=== PATIENT | male | born 1990 | race Caucasian/White ===

== ENCOUNTER 2017-12-26 13:46 | Emergency (ER) | payer BC ==
[~2017-12-26] VITALS: Ht 167.6 cm; Wt 103.2 kg
[~2017-12-26 13:46] MED LIST: KEPPRA 500MG500 MG PO
[2017-12-26 13:47] VITALS: TEMP 99.5
[2017-12-26] MEDS ORDERED: KEPPRA 500MG500 MG PO ×2 (13:53→15:04)
[2017-12-26 14:21] LABS: HEMATOCRIT 41.7 % (42.0-52.0); HEMOGLOBIN 14.4 g/dl (13.5-18.0); MEAN CELL VOLUME 88 fl (80.0-100.0); MEAN CORPUSCULAR HEMOGLOBIN 30 pg (27.0-31.0); MEAN CORPUSCULAR HGB CONC 35 g/dl (33.0-37.0); MEAN PLATELET VOLUME 8.6 fl (7.4-10.4); PLATELET COUNT 251 K/mm3 (130-400); RED BLOOD COUNT 4.74 M/mm3 (4.20-5.60); REDCELL DISTRIBUTION WIDTH-CV 11.7 % (11.5-14.5)
[2017-12-26 14:31] LABS: ALBUMIN 5.1 gm/dL (3.5-5.0); BILIRUBIN,TOTAL 0.6 mg/dL (0.0-1.0); CREATININE, serum 1.05 mg/dL (0.66-1.25); POTASSIUM 4.3 mmol/L (3.4-5.0); TOTAL PROTEIN 8.1 gm/dL (6.4-8.2)
[2017-12-26 15:17] LABS: BAND 5 % (0-10); LYMPHOCYTE 23 % (20.0-51.0); NEUTROPHILS 70 % (42.0-75.2); PLATELET ESTIMATE NORMAL (NORMAL)
[2017-12-26 15:37] VITALS: BP 119/86; PULSE 104
== END 2017-12-26 15:44 | disposition home or self-care (01) ==
LOC: COL.ER 13:46
PROVIDERS: Emergency Medicine
DX: G40.909 Epilepsy, unspecified, not intractable, without status epilepticus (principal); S00.81XA Abrasion of other part of head, initial encounter; S00.31XA Abrasion of nose, initial encounter; W07.XXXA Fall from chair, initial encounter
CPT/HCPCS: J1953; J2060